=== PATIENT | female | born 1950 | race Caucasian/White ===

== ENCOUNTER 2016-05-15 07:05 | Emergency (ER) | payer BC ==
--- NOTE | 2016-05-15 07:35 | UC ---
Elbow Pain - HPI Summary HPI Summary: The patient comes in today for: 1. Elbow injury: Onset: 2-3 weeks ago. Palliative/provocative: Touching makes it worse as well as full extension. Quality: Ache Region: Olecranon bursa area. Severity: 6/10 at rest. With percussion: 10/10 Time: Constant. Associated symptoms: Injury: None. Home treatment: None. * - History of Current Complaint Chief Complaint: UCUpperExtremity Stated Complaint: ELBOW INJURY Time Seen by Provider: 05/15/16 07:31 Hx Last Menstrual Period: Menopause. ?: No - Allergies/Home Medications Allergies/Adverse Reactions: Allergies Allergy/AdvReac Type Severity Reaction Status Date / Time No Known Allergies Allergy Verified 05/15/16 07:25 PMH/Surg Hx/FS Hx/Imm Hx Previously Healthy: No - Psoriasis Endocrine History Of: Denies: Diabetes, Thyroid Disease, Hyperthyroidism, Hypothyroidism, Dyslipidemia Cardiovascular History Of: Denies: Cardiac Disorders, Hypertension, Pacemaker/ICD, Myocardial Infarction , Congestive Heart Failure, Atrial Fibrillation, Deep Vein Thrombosis, Bleeding Disorders Respiratory History Of: Denies: COPD, Asthma, Bronchitis, Pneumonia, Pulmonary Embolism GI/ History Of: Denies: Gastroesophageal Reflux, Ulcer, Gastrointestinal Bleed, Gall Bladder Disease, Kidney Stones, Diverticulitis, Renal Disease, Urosepsis Neurological History Of: Denies: TIA, CVA, Dementia, Seizures, Migraine Psychological History Of: Denies: Anxiety, Depression, Bipolar Disorder, Schizophrenia, Post Traumatic Stress Disorder Cancer History Of: Denies: Lung Cancer, Colorectal Cancer, Breast Cancer, Prostate Cancer, Cervical Cancer Other History Of: Negative For: HIV, Hepatitis B, Hepatitis C, Anticoagulant Therapy - Surgical History Surgical History: Yes Surgery Procedure, Year, and Place: GASTRIC BYPASS, 2011. GALLBLADDER,1998. RT BREAST BIOPSY, SUNIL GROSS ?2000 - Family History Known Family History: Positive: Diabetes, Renal Disease - father on dialysis, Other - [place] Negative: Cardiac Disease, Hypertension - Social History Occupation: Unemployed Lives: With Family Alcohol Use: Rare Substance Use Type: None Smoking Status (MU): Never Smoked Tobacco Review of Systems Constitutional: Negative Skin: Negative Eyes: Negative ENT: Negative Respiratory: Negative Cardiovascular: Negative Gastrointestinal: Negative Genitourinary: Negative Musculoskeletal: Arthralgia All Other Systems Reviewed And Are Negative: Yes Physical Exam Triage Information Reviewed: Yes Appearance: Well-Appearing, No Pain Distress Vital Signs Reviewed: Yes Eyes: Positive: Conjunctiva Clear. Negative: Discharge ENT: Positive: Hearing grossly normal. Negative: Pharyngeal erythema, Nasal congestion, Nasal drainage, TM bulging, TM dull, Tonsillar swelling, Tonsillar exudate Dental: Negative: Gross Decay/Caries @, Dental Fracture @ Neck: Positive: Supple, Nontender, No Lymphadenopathy. Negative: Nuchal Rigidity Respiratory: Positive: Lungs clear, No respiratory distress, No accessory muscle use. Negative: Crackles, Wheezing Cardiovascular: Positive: RRR, No Murmur Abdomen Description: Positive: Nontender, No Organomegaly, Soft. Negative: Distended, Guarding Musculoskeletal: Positive: Strength Intact, ROM Intact, Other: - Left elbow: She has minimal puffy edema. There was minimal erythema. Warms was present-- all these findings were over the olecranon bursa area. There was focal tenderness to palpation over the olecranon bursa. Neurological: Positive: Alert, Muscle Tone Normal Psychological: Positive: Normal Response To Family, Age Appropriate Behavior, Consolable Skin: Negative: rashes, breakdown Elbow Pain Course/Dx - Differential Dx/Diagnosis Differential Diagnosis/HQI/PQRI: Bursitis, Cellulitis, Sprain Provider Diagnoses: left olecranon bursitis Discharge - Discharge Plan Condition: Stable Disposition: HOME Patient Education Materials: Elbow Bursitis (ED), Elbow Bursitis Exercises (GEN ) Referrals: Sarah Gusman MD [Primary Care Provider] - 1 Week (Please see your primary care provider in a week to see how well you are doing. If you get worse, please be seen sooner in the ER or through us.)
[2016-05-15 08:45] VITALS: BP 160/80
== END 2016-05-15 08:51 | disposition home or self-care (01) ==
LOC: UCEAST 07:05
DX: M70.22 Olecranon bursitis, left elbow (principal)
CPT/HCPCS: 99212; G0463

== ENCOUNTER 2017-04-12 08:59 | Emergency (ER) | payer BC ==
[2017-04-12 10:37] VITALS: BP 152/78
--- NOTE | 2017-04-12 13:26 | UC ---
Nabil Trujillo Stephanie, scribed for Mauro Samson MD on 04/12/17 at 1204 . Respiratory Complaint HPI - HPI Summary HPI Summary: The pt is a 66 y/o F presenting to with productive cough that began 2 weeks ago. Symptoms include wheezing, CP associated with cough, rhinnorea, sinus pressure and sore throat. Pt denies myalgia, fever and ankle swelling. - History of Current Complaint Chief Complaint: UCRespiratory Stated Complaint: RESP ISSUE CHEST CONGESTION Time Seen by Provider: 04/12/17 11:21 Hx Obtained From: Patient Hx Last Menstrual Period: Menopause. ?: No Onset/Duration: Lasting Weeks - 2, Still Present Timing: Constant Pain Intensity: 0 Pain Scale Used: 0-10 Numeric Character: Cough: Productive - yellow sputum Alleviating Factors: Nothing Associated Signs And Symptoms: Positive: Wheezing, Sinus Discomfort. Negative: Fever, Calf Swelling - Allergies/Home Medications Allergies/Adverse Reactions: Allergies Allergy/AdvReac Type Severity Reaction Status Date / Time No Known Allergies Allergy Verified 04/12/17 10:28 PMH/Surg Hx/FS Hx/Imm Hx Other Respiratory History: Negative: COPD, asthma Other History Of: Negative For: HIV, Hepatitis B, Hepatitis C, Anticoagulant Therapy - Surgical History Surgical History: Yes Surgery Procedure, Year, and Place: GASTRIC BYPASS, 2011. GALLBLADDER,1998. RT BREAST BIOPSY, SUNIL GROSS ?1999 - Family History Known Family History: Positive: Diabetes, Renal Disease - father on dialysis, Other - [place] Negative: Cardiac Disease, Hypertension - Social History Occupation: Unemployed Lives: With Family Alcohol Use: Rare Substance Use Type: None Smoking Status (MU): Never Smoked Tobacco - Immunization History Most Recent Influenza Vaccination: Fall 2015 Most Recent Pneumonia Vaccination: Never Review of Systems Constitutional: Negative Skin: Negative Eyes: Negative ENT: Sore Throat, Nasal Discharge, Sinus Pain/Tenderness Respiratory: Cough, Other - wheezing Cardiovascular: Chest Pain - with cough Gastrointestinal: Negative Genitourinary: Negative Motor: Negative Neurovascular: Negative Musculoskeletal: Negative Neurological: Negative Psychological: Negative All Other Systems Reviewed And Are Negative: Yes Physical Exam Triage Information Reviewed: Yes Vital Signs: Initial Vital Signs Temp 97.8 F 04/12/17 10:34 Pulse 71 04/12/17 10:34 Resp 20 04/12/17 10:34 BP 152/78 04/12/17 10:34 Pulse Ox 100 04/12/17 10:34 Vital Signs Reviewed: Yes - Additional Comments General: Mildly ill-appearing, no pain distress Skin: warm, color reflects adequate perfusion, dry Head: normal Eyes: EOMI, ANUJA ENT: Minimal rhinorrhea Neck: supple, nontender Respiratory: Minimal rhonchi, breath sounds present Cardiovascular: RRR Abdomen: soft, nontender Bowel: present Musculoskeletal: normal, strength/ROM intact Neurological: normal, sensory/motor intact, A&O x3 Psychological: affect/mood appropriate Diagnostic Evaluation - Laboratory O2 Sat by Pulse Oximetry: 100 Respiratory Course/Dx - Course Course Of Treatment: Medications reviewed. - Differential Dx/Diagnosis Provider Diagnoses: BRONCHITIS Discharge - Discharge Plan Condition: Stable Disposition: HOME Prescriptions: Azithromycin TAB* [Zithromax TAB (Z-LISET) 250 mg #6 tabs] 2 tab PO .TODAY, THEN 1 DAILY #1 liset Patient Education Materials: Acute Bronchitis (ED) Referrals: Sarah Gusman MD [Primary Care Provider] - Additional Instructions: FOLLOW UP WITH YOUR DOCTOR. GET RECHECKED FOR ANY WORSENING OF YOUR CONDITION OR QUESTIONS OR CONCERNS. The documentation as recorded by the Nabil azevedo Stephanie accurately reflects the service I personally performed and the decisions made by me, Mauro Samson MD.
== END 2017-04-12 11:38 | disposition home or self-care (01) ==
LOC: UCEAST 08:59
DX: J40 Bronchitis, not specified as acute or chronic (principal); Z98.84 Bariatric surgery status; Z90.49 Acquired absence of other specified parts of digestive tract
CPT/HCPCS: 99212; G0463